=== PATIENT | female | born 1985 | race Native Hawaiian/Other Pacific Islander ===

== ENCOUNTER 2023-06-17 22:18 | Emergency (ER) | payer OTHER ==
[2023-06-17 22:45] LABS: BILIRUBIN,URINE NEGATIVE (NEGATIVE); GLUCOSE, URINE (UA) NEGATIVE (NEGATIVE); KETONES,URINE (UA) NEGATIVE (NEGATIVE); LEUKOCYTE ESTERASE, URINE NEGATIVE (NEGATIVE); NITRITE,URINE NEGATIVE (NEGATIVE); OCCULT BLOOD,URINE MODERATE (NEGATIVE); PROTEIN,URINE NEGATIVE (NEGATIVE); UROBILINOGEN,URINE 0.2 (NORMAL) E.U./dL (NORMAL)
[2023-06-17] MEDS ORDERED: ONDANSETRON 4 MG/2 ML VIAL IVP STA (22:47)
[2023-06-17] MEDS ORDERED: KETOROLAC 15 MG/ML VIAL IVP STA (22:47)
[2023-06-17 22:49] LABS: CLARITY,URINE CLEAR (CLEAR)
[2023-06-17 22:53] LABS: BASOPHILS # (AUTO) 0.1 10^3/uL (0.0-0.1); BASOPHILS % (AUTO) 0.5 %; EOSINOPHILS # (AUTO) 0.1 10^3/uL (0.0-0.7); EOSINOPHILS % (AUTO) 0.7 %; HCT - HEMATOCRIT 32.6 % (37.0-47.0); HGB - HEMOGLOBIN 10.5 g/dL (12.0-16.0); LYMPHOCYTES # (AUTO) 2.1 10^3/uL (1.5-3.5); LYMPHOCYTES % (AUTO) 18.7 %; MEAN CORPUSCULAR HEMOGLOBIN 26.8 pg (27.0-31.0); MEAN CORPUSCULAR HGB CONC 32.2 g/dL (32.0-36.0); MEAN CORPUSCULAR VOLUME 83.2 fL (81.0-99.0); MEAN PLATELET VOLUME 9.4 fL (7.9-10.8); MONOCYTES # (AUTO) 0.8 10^3/uL (0.0-1.0); MONOCYTES % (AUTO) 7.2 %; NEUTROPHILS # (AUTO) 8.3 10^3/uL (1.5-6.6); NEUTROPHILS % (AUTO) 72.6 %; PLT - PLATELET COUNT 406 10^3/uL (130-450); RED BLOOD COUNT 3.92 10^6/uL (4.20-5.40); RED CELL DISTRIBUTION WIDTH 17.2 % (12.0-15.0); WHITE BLOOD COUNT 11.4 x10^3/uL (4.8-10.8)
[2023-06-17 22:59] LABS: BACTERIA,URINE Few /HPF (None Seen); RBC,URINE 0-5 /HPF (0-5); SQUAMOUS EPITHELIAL CELL,UR FEW Squamous (<= Few); WBC,URINE 0-3 /HPF (0-5)
[2023-06-17 23:21] LABS: ALBUMIN 4.6 g/dL (3.2-5.5); ALBUMIN/GLOBULIN RATIO 1.2 (1.0-2.2); BILIRUBIN,TOTAL 0.4 mg/dL (0.2-1.0); CALCIUM 9.1 mg/dL (8.5-10.3); CREATININE 0.8 mg/dL (0.4-1.0); POTASSIUM 3.2 mmol/L (3.5-5.0); TOTAL PROTEIN 8.3 g/dL (6.7-8.2)
[2023-06-17] MEDS ORDERED: MORPHINE 2 MG/ML CARPUJECT IVP STA (23:32)
[2023-06-18 00:04] LABS: HCG UR QUAL NEGATIVE
[2023-06-18] MEDS ORDERED: KETOROLAC 15 MG/ML VIAL IVP STA (01:06)
[2023-06-18] MEDS ORDERED: PROMETHAZINE INJ 25 MG in SODIUM CHLORIDE 0.9% 50 ML IV STA (01:06)
--- NOTE | 2023-06-18 01:06 | ED Physician Documentation ---
PD HPI FEMALE - Stated complaint Stated Complaint: FEMALE - Chief complaint Chief Complaint: Abd Pain - History obtained from History obtained from: Patient - History of Present Illness Timing - onset: Today - Additional information Additional information: 38-year-old female with no significant past medical history presents for dysuria as well as left-sided lumbar back pain. Patient states that pain began after going to the beach and gradually worsened. Feels like a urinary tract infection but "more severe". Reports nausea, denies vomiting. Review of Systems Constitutional: denies: Fever, Chills Cardiac: denies: Chest pain / pressure, Palpitations : reports: Dysuria. denies: Frequency, Hesitancy, Unable to Void, Hematuria Musculoskeletal: reports: Back pain. denies: Neck pain, Extremity pain, Joint pain PD PAST MEDICAL HISTORY - Present Medications Home Medications: Ambulatory Orders Medication Instructions Recorded Confirmed HYDROcod/ACETAM 5/325 [Topock 5/325] 1 - 2 tab PO Q6H PRN #15 tablet 06/18/23 Ondansetron Odt [Zofran] 4 mg TL Q6H PRN #10 tablet 06/18/23 Tamsulosin [Flomax] 0.4 mg PO DAILY #14 cap 06/18/23 - Allergies Allergies/Adverse Reactions: Allergies Allergy/AdvReac Type Severity Reaction Status Date / Time No Known Drug Allergies Allergy Verified 06/17/23 22:29 PD ED PE NORMAL - Vitals Vital signs reviewed: Yes - General General: Alert and oriented X 3, No acute distress, Well developed/nourished - HEENT HEENT: Atraumatic, Pharynx benign - Neck Neck: Supple, no meningeal sign - Cardiac Cardiac: RRR, No murmur, Strong equal pulses - Respiratory Respiratory: No respiratory distress, Clear bilaterally - Abdomen Abdomen: Soft, Non tender, Non distended - Back Back: No CVA TTP, No spinal TTP - Derm Derm: Normal color, Warm and dry, No rash - Extremities Extremities: No deformity, No tenderness to palpate, Normal ROM s pain, No edema - Neuro Neuro: Alert and oriented X 3, knitter wire mesh 2-12 intact, No motor deficit, Normal speech Results - Vitals Vitals: Vital Signs - 24 hr 06/17/23 06/18/23 06/18/23 22:25 00:19 01:17 Temperature 36.8 C Heart Rate 91 73 80 Respiratory 17 15 16 Rate Blood Pressure 127/83 H 120/73 116/67 O2 Saturation 97 99 97 06/18/23 02:13 Temperature Heart Rate 81 Respiratory 15 Rate Blood Pressure 116/72 O2 Saturation 100 Oxygen O2 Source Room air - Labs Labs: Laboratory Tests 06/17/23 06/17/23 06/17/23 22:30 22:30 22:40 WBC 11.4 H RBC 3.92 L Hgb 10.5 L Hct 32.6 L MCV 83.2 MCH 26.8 L MCHC 32.2 RDW 17.2 H Plt Count 406 MPV 9.4 Neut # (Auto) 8.3 H Lymph # (Auto) 2.1 Mayes # (Auto) 0.8 Eos # (Auto) 0.1 Baso # (Auto) 0.1 Absolute Nucleated RBC 0.00 Nucleated RBC % 0.0 Sodium Potassium Chloride Carbon Dioxide Anion Gap BUN Creatinine Estimated GFR (MDRD) Glucose Calcium Total Bilirubin AST ALT Alkaline Phosphatase Total Protein Albumin Globulin Albumin/Globulin Ratio Lipase Urine Color YELLOW Urine Clarity CLEAR Urine pH 6.0 Ur Specific [place] <=1.005 Urine Protein NEGATIVE Urine Glucose (UA) NEGATIVE Urine Ketones NEGATIVE Urine Occult Blood MODERATE H Urine Nitrite NEGATIVE Urine Bilirubin NEGATIVE Urine Urobilinogen 0.2 (NORMAL) Ur Leukocyte Esterase NEGATIVE Urine RBC 0-5 Urine WBC 0-3 Ur Squamous Epith Cells FEW Squamous Urine Bacteria Few Ur Microscopic Review INDICATED Urine Culture Comments NOT INDICATED Urine HCG, Qual NEGATIVE 06/17/23 22:40 WBC RBC Hgb Hct MCV MCH MCHC RDW Plt Count MPV Neut # (Auto) Lymph # (Auto) Mayes # (Auto) Eos # (Auto) Baso # (Auto) Absolute Nucleated RBC Nucleated RBC % Sodium 133 L Potassium 3.2 L Chloride 101 Carbon Dioxide 25 Anion Gap 7.0 BUN 12 Creatinine 0.8 Estimated GFR (MDRD) 81 L Glucose 105 H Calcium 9.1 Total Bilirubin 0.4 AST 25 ALT 20 Alkaline Phosphatase 61 Total Protein 8.3 H Albumin 4.6 Globulin 3.7 Albumin/Globulin Ratio 1.2 Lipase 28 Urine Color Urine Clarity Urine pH Ur Specific [place] Urine Protein Urine Glucose (UA) Urine Ketones Urine Occult Blood Urine Nitrite Urine Bilirubin Urine Urobilinogen Ur Leukocyte Esterase Urine RBC Urine WBC Ur Squamous Epith Cells Urine Bacteria Ur Microscopic Review Urine Culture Comments Urine HCG, Qual PD Medical Decision Making - ED course Complexity details: reviewed results, re-evaluated patient, considered differential ED course: Patient presenting for dysuria and lumbar pain concerning for urinary tract infection. No CVA tenderness to percussion. Will order Toradol and as well as labs and urinalysis. Laboratory work is reviewed, no significant abnormalities identified. Urinalysis shows blood without infection. Based on patient's symptoms concern is now for kidney stone. Will order CT abdomen and pelvis without contrast. CT abdomen pelvis shows 5 mm obstructing stone on the left-hand side with minimal hydronephrosis. Patient's pain is currently well controlled, kidney function is normal, no emesis in department. Patient was counseled on her lab and imaging findings, she was given referral to urology and will discharge with pain medications, Flomax. Emphasized the need for fluid hydration and urology follow-up. Patient expressed understanding of plan and is in agreement at this time. All questions answered at time of discharge. Departure - Departure Disposition: 01 Home, Self Care Clinical Impression: Kidney stone on left side Condition: Stable Instructions: ED Stone Renal W Colic Follow-Up: Villa Ceballos MD [Provider Admit Priv/Credential] - Prescriptions: Tamsulosin [Flomax] 0.4 mg PO DAILY #14 cap HYDROcod/ACETAM 5/325 [Topock 5/325] 1 - 2 tab PO Q6H PRN #15 tablet PRN Reason: Pain Ondansetron Odt [Zofran] 4 mg TL Q6H PRN #10 tablet PRN Reason: Nausea / Vomiting Forms: PCP List Discharge Date/Time: 06/18/23 02:34
[2023-06-18] MEDS ORDERED: PROMETHAZINE 25 MG/1 ML VIAL ONE (01:22)
--- NOTE | 2023-06-18 02:04 | CT Report ---
PROCEDURE: ABDOMEN/PELVIS WO INDICATIONS: FLANK PAIN, HEMATURIA TECHNIQUE: A CT scan of the abdomen and pelvis was performed without the use of intravenous contrast. Images we re recorded and evaluated at appropriate window settings. Reformats: coronal and sagittal. For radiat ion dose reduction, the following was used: automated exposure control, adjustment of mA and/or kV ac cording to patient size. COMPARISON: None. FINDINGS: Image quality: Excellent. Lung bases: There is mild dependant atelectasis. Heart: Heart is normal in size. URINARY: Right Kidney and Ureter: No stones or hydronephrosis. No hydroureter. Left Kidney and Ureter: There is a urinary stone at the right ureterovesical junction measuring up t o 0.5 cm with attenuation values of 600-700 Hounsfield units. There is associated mild left hydrouret eronephrosis with mild perinephric and periureteral fat stranding. Bladder: Normal wall thickness. No stones. ABDOMEN: Liver: Noncontrast evaluation of the liver demonstrates no discrete mass. Gallbladder:Surgically absent. Biliary ducts: No biliary ductal dilatation. Pancreas: Unremarkable. Spleen: Normal in size. Adrenal Glands: No adrenal nodules. Stomach and Bowel: Stomach, small bowel loops, and colon are normal in caliber and wall thickness. Peritoneum: No abnormal intraperitoneal fluid. No free air. Ventral Wall: No hernia. Abdominal Nodes: No retroperitoneal or mesenteric adenopathy by size criteria. Vessels: Aorta and inferior vena cava are normal in size. PELVIS: Pelvic Organs: Unremarkable. Pelvic Nodes: No enlarged lymph nodes. Miscellaneous: No inguinal hernias identified. Bones: Visualized osseous structures demonstrate no suspicious focal lesions. IMPRESSION: 1. Obstructing urinary stone at the left UVJ with mild left hydroureteronephrosis. Reviewed by: Jose Angel Hurst MD on 06/18/2023 2:02 AM PDT Approved by: Jose Angel Hurst MD on 06/18/2023 2:02 AM PDT Station ID: [id number]
[2023-06-18] MEDS ORDERED: oxyCODONE/ACET 5/325 Prepack 4 PO STA (02:11)
[2023-06-18 02:17] VITALS: BP 116/72
== END 2023-06-18 02:34 | disposition home or self-care (01) ==
LOC: ED 22:18
DX: N13.2 Hydronephrosis with renal and ureteral calculous obstruction (principal)
CPT/HCPCS: 36415; 74176; 80053; 81001; 81025; 83690; 85025; 96365; 96375; 96376; 99283; 99284; J7040; 81003; 87086

== ENCOUNTER 2024-04-08 19:39 | Outpatient (CLI) | payer OTHER ==
[2024-04-08 20:51] LABS: HCT - HEMATOCRIT 36.1 % (37.0-47.0); HGB - HEMOGLOBIN 11.6 g/dL (12.0-16.0); MEAN CORPUSCULAR HEMOGLOBIN 27.4 pg (27.0-31.0); MEAN CORPUSCULAR HGB CONC 32.1 g/dL (32.0-36.0); MEAN CORPUSCULAR VOLUME 85.3 fL (81.0-99.0); MEAN PLATELET VOLUME 9.9 fL (7.9-10.8); RED BLOOD COUNT 4.23 10^6/uL (4.20-5.40); RED CELL DISTRIBUTION WIDTH 14.2 % (12.0-15.0); WHITE BLOOD COUNT 6.5 x10^3/uL (4.8-10.8)
[2024-04-08 21:03] LABS: CALCIUM 10.1 mg/dL (8.5-10.3); CREATININE 0.7 mg/dL (0.6-1.3); POTASSIUM 3.8 mmol/L (3.5-4.5); URIC ACID 3.3 mg/dL (2.3-6.6)
--- NOTE | 2024-04-09 15:56 | XRAY Report ---
PROCEDURE: Hand 1-2V BL INDICATIONS: OTHER SPECIFIED ARTHRITIS, LEFT HAND TECHNIQUE: 2 views of the hand(s) acquired. COMPARISON: None. FINDINGS: Bones: No fractures or dislocations. No osseous erosions. Joint spaces are maintained. No suspiciou s bony lesions. Soft tissues: No suspicious soft tissue calcifications or masses. IMPRESSION: 1.No acute bony abnormality. If pain persists with conservative management, consider repeat radiograp hs in 10-14 days or cross-sectional imaging. 2.No radiographic evidence of degenerative or inflammatory arthritis. Reviewed by: Juancho Ness MD on 04/09/2024 3:55 PM PDT Approved by: Juancho Ness MD on 04/09/2024 3:55 PM PDT Station ID: [id number]
== END 2024-04-08 19:40 | disposition home or self-care (01) ==
LOC: DI 19:39
PROVIDERS: ATTEND Family Medicine
DX: M19.042 Primary osteoarthritis, left hand (principal); M19.041 Primary osteoarthritis, right hand
CPT/HCPCS: 36415; 80048; 84550; 85027; 85651

== ENCOUNTER 2024-05-05 07:22 | Outpatient (CLI) | payer OTHER ==
--- NOTE | 2024-05-05 15:02 | MRI Report ---
PROCEDURE: Wrist LT WO INDICATIONS: LEFT WRIST PAIN TECHNIQUE: Noncontrast coronal proton density fast spin echo and T2 fast spin echo with fat saturation; coronal 3-D gradient echo, axial T1 spin echo and T2 fast spin echo with fat saturation, sagittal T1 spin ech o through the wrist. COMPARISON: Bilateral hand radiograph dated 04/08/2024. FINDINGS: Image quality: Excellent. Bones and cartilage: The carpal bones are normally aligned. No bone marrow contusions or fractures. No evidence for avascular necrosis. Overlying cartilage surfaces appear normal. Carpal ligaments: The scapholunate ligament appears slightly thickened with intrasubstance T2 hyperi ntense signal. No significant widening of scapholunate interval. The lunotriquetral ligament is intac t.. In the absence of intra-articular contrast, the extrinsic carpal ligaments are not well identifi ed. On sagittal images, the pisohamate ligament appears intact. Triangular fibrocartilage complex: The triangular fibrocartilage appears intact. The adjacent menis rajwinder homolog appears normal in the absence of intra-articular contrast. The extensor carpi ulnaris te ndon is thickened at the level of ulnar styloid. Tendons and soft tissues: The carpal tunnel structures appear normal, including the median nerve. T he ulnar nerve appears normal within Guyon's canal. There is fluid distending second extensor tendon sheath at the level of carpal bones. Rest of the extensor tendons are intact. No soft tissue ganglion cysts. IMPRESSION: 1. No marrow edema. No fracture or dislocation. No suspicious intraosseous lesion. No evidence of virgil scular necrosis. 2. Suggestion of sprain/low-grade intrasubstance partial thickness tear involving scapholunate ligame nt. No ligament rupture. The lunotriquetral ligament is intact. 3. The triangular fibrocartilage complex is intact. 4. Low-grade tenosynovitis involving second extensor compartment at the level of carpal bones. Tendin osis involving extensor carpi ulnaris tendon at the level of ulnar styloid. Reviewed by: Stas Espinal MD on 05/05/2024 3:01 PM PDT Approved by: Stas Espinal MD on 05/05/2024 3:01 PM PDT Station ID: [id number]
== END 2024-05-05 07:23 | disposition home or self-care (01) ==
LOC: DI 07:22
PROVIDERS: ATTEND Orthopaedic Surgery
DX: M67.932 Unspecified disorder of synovium and tendon, left forearm (principal); M65.9 Synovitis and tenosynovitis, unspecified